=== PATIENT | male | born 1960 | race Caucasian/White ===

== ENCOUNTER → 2020-09-16 | Outpatient (CLI) | payer BC, OTHER ==
[~2020-09-16] MED LIST: HCTZ; PERCOCET 5-3251 EACH PO; ZOLOFT
== END ==
LOC: LAB 13:41
PROVIDERS: ATTEND Neuromusculoskeletal Medicine & OMM
DX: U07.1 COVID-19 (principal)

== ENCOUNTER → 2020-10-30 | Outpatient (CLI) | payer BC, OTHER | LOC: LAB 12:05 | PROVIDERS: ATTEND Neuromusculoskeletal Medicine & OMM | DX: Z20.828 Contact with and (suspected) exposure to other viral communicable diseases (principal) ==

== ENCOUNTER → 2020-11-11 | Outpatient (CLI) | payer BC, OTHER | LOC: LAB 09:31 | PROVIDERS: ATTEND Neuromusculoskeletal Medicine & OMM | DX: Z20.822 Contact with and (suspected) exposure to COVID-19 (principal) ==

== ENCOUNTER → 2020-12-18 | Outpatient (CLI) | payer BC, OTHER | LOC: CAT 09:23 | PROVIDERS: ATTEND Neuromusculoskeletal Medicine & OMM | DX: C79.89 Secondary malignant neoplasm of other specified sites (principal); N28.1 Cyst of kidney, acquired; K80.20 Calculus of gallbladder without cholecystitis without obstruction; R22.2 Localized swelling, mass and lump, trunk ==